=== PATIENT | female | born 1995 | race Caucasian/White ===

== ENCOUNTER → 2022-05-06 13:50 | Outpatient (CLI) | payer BC, SELFPAY ==
--- NOTE | ~2022-05-06 | US_ITS ---
EXAMINATION: US OB <=14 wk fetus w TV DATE: 05/06/2022 14:19 INDICATION: Supervision of normal . TECHNIQUE: Real-time transabdominal and transvaginal obstetric ultrasound. FINDINGS: No prior studies for comparison. The uterus measures 8.7 x 4.4 x 5.9 cm. There is an intrauterine gestational sac. Mean sac diameter c orresponds to a 5 week 2 day gestation (CAROL 01/04/2023 There is a small subchorionic hemorrhage measu ring 4 x 3 x 3 mm crown-rump length is not visualized. Yolk sac is present. Right ovary measures 3.7 x 2.4 x 2.2 cm. Left ovary measures 3.2 x 1.9 x 2 years. No significant abnormality of the ovaries. IMPRESSION: 1. Intrauterine gestational sac containing a yolk sac. No identifiable pole, likely due to graham y gestational age. Mean sac diameter corresponds to a 5 week 2 day gestation. Quantitative beta-hCG l evels and ultrasound as clinically indicated. 2: Small subchorionic hemorrhage measuring 4 x 3 x 3 mm. Reviewed, dictated and finalized at location A. IMPRESSION: 1. Intrauterine gestational sac containing a yolk sac. No identifiable po le, likely due to early gestational age. Mean sac diameter corresponds to a 5 w [place] 2 day gestation. Quantitative beta-hCG levels and ultrasound as clinically indicated. 2: Small subchorionic hemorrhage measuring 4 x 3 x 3 mm.
== END ==
PROVIDERS: PCP Student in an Organized Health Care Education/Training Program; Visit Provider Student in an Organized Health Care Education/Training Program
DX: O46.91 Antepartum hemorrhage, unspecified, first trimester (principal); Z3A.01 Less than 8 weeks gestation of pregnancy
CPT/HCPCS: 76801; 76817

== ENCOUNTER 2022-05-27 16:04 | Outpatient (CLI) | payer BC, SELFPAY ==
--- NOTE | ~2022-05-27 | US_ITS ---
EXAMINATION: US OB <=14 wk fetus w TV DATE: 05/27/2022 17:05 INDICATION: Complicated . Spotting. TECHNIQUE: Real-time transabdominal and transvaginal obstetric ultrasound. FINDINGS: Comparison to 05/06/2022 The uterus measures 10.1 x 6.6 x 7.1 cm. There is an intrauterine gestational sac, with pole id entified. [place]-rump length measures 1.97 cm. heart rate is 173 bpm. The ovaries are within nor mal limits. No evidence for subchorionic hemorrhage. IMPRESSION: 1. SL IUP with an EGA of 8 weeks, 2 days (EDC by current ultrasound of 01/04/2023). Reviewed, dictated and finalized at location B. IMPRESSION: 1. SL IUP with an EGA of 8 weeks, 2 days (EDC by current ultrasound of 01/05/20 23).
== END 2022-05-27 16:05 | disposition home or self-care (01) ==
LOC: ANHIMG 16:06
PROVIDERS: PCP Registered Nurse; Visit Provider Student in an Organized Health Care Education/Training Program
DX: O26.851 Spotting complicating pregnancy, first trimester (principal); Z3A.08 8 weeks gestation of pregnancy
CPT/HCPCS: 76801; 76817

== ENCOUNTER 2022-10-18 07:30 | Outpatient (CLI) | payer BC, SELFPAY ==
[2022-10-18 09:05] LABS: Basophils Percent Auto 0.5 % (0.2-1.2); Eosinophils Absolute Auto 0.1 K/mm3 (0-0.3); Eosinophils Percent Auto 1.8 % (0-4.4); Hematocrit 37.7 % (37.0-47.0); Immature Granulocyte Absolute 0.04 K/mm3 (0.00-0.031); Immature Granulocyte Percent A 0.5 % (0-0.5); Lymphocytes Absolute Auto 1.21 K/mm3 (0.9-3.2); Lymphocytes Percent Auto 15.3 % (18.3-44.2); Mean Corpuscular HGB Conc 34.5 g/dl (32-36); Mean Corpuscular Hemoglobin 30.9 pg (26-34); Mean Corpuscular Volume 89.5 fl (80-100); Mean Platelet Volume 9.6 fl (7.4-10.4); Monocytes Absolute Auto 0.5 K/mm3 (0.1-0.6); Monocytes Percent Auto 5.7 % (2.6-8.5); Neutrophils Percent Auto 76.2 % (45.5-73.1); Platelet Count Result 180 k/mm3 (150-375); Red Blood Count 4.21 M/mm3 (4.2-5.4); Red Cell Distribution Width 12.4 % (11.5-14.5); White Blood Count 7.9 K/mm3 (4.5-10.0)
[2022-10-18 09:25] LABS: Glucose 1 Hour PP 50gm Dose 133 mg/dL
[2022-10-18] MEDS: RHO(D) IMMUNE GLOBULIN 300 MCG/2 ML SYRINGE IM (12:54)
== END 2022-10-18 07:31 | disposition home or self-care (01) ==
PROVIDERS: PCP Registered Nurse; Visit Provider Obstetrics & Gynecology
DX: Z34.90 Encounter for supervision of normal pregnancy, unspecified, unspecified trimester (principal); Z3A.00 Weeks of gestation of pregnancy not specified
CPT/HCPCS: 36415; 82947; 85025; 85461; 86850; 86900; 86901; 90384; 96372; J2790

== ENCOUNTER 2022-11-04 06:59 | Outpatient (CLI) | payer BC, SELFPAY ==
[2022-11-04 07:30] LABS: Glucose Fasting Gestational 88 mg/dL (>/=95)
[2022-11-04 09:00] LABS: Glucose 1 Hour Gest 135 mg/dL (>/=180)
[2022-11-04 10:13] LABS: Glucose 2 Hour Gest 111 mg/dL (>/= 155)
[2022-11-04 11:27] LABS: Glucose 3 Hour Gest 82 mg/dL (>/=140)
== END 2022-11-04 07:00 | disposition home or self-care (01) ==
LOC: ANHLAB 07:00
PROVIDERS: PCP Registered Nurse; Visit Provider Obstetrics & Gynecology
DX: O99.810 Abnormal glucose complicating pregnancy (principal); Z3A.00 Weeks of gestation of pregnancy not specified
CPT/HCPCS: 36415; 82951; 82952

== ENCOUNTER 2022-11-15 08:30 | Outpatient (CLI) | payer BC, SELFPAY ==
[2022-11-15 09:48] LABS: HIV 1/2 Ab P24 Ag Result Negative (Negative)
[2022-11-15 17:15] LABS: Rapid Plasma Reagin Non-Reactive (NonReactive)
== END 2022-11-15 08:31 | disposition home or self-care (01) ==
PROVIDERS: PCP Registered Nurse; Visit Provider Obstetrics & Gynecology
DX: Z34.90 Encounter for supervision of normal pregnancy, unspecified, unspecified trimester (principal)
CPT/HCPCS: 36415; 86592; 86703; G0432

== ENCOUNTER 2022-12-02 08:15 | Outpatient (CLI) | payer BC, SELFPAY ==
[2022-12-02 08:34] LABS: Basophils Percent Auto 0.4 % (0.2-1.2); Eosinophils Absolute Auto 0.1 K/mm3 (0-0.3); Eosinophils Percent Auto 1.4 % (0-4.4); Immature Granulocyte Absolute 0.07 K/mm3 (0.00-0.031); Immature Granulocyte Percent A 0.8 % (0-0.5); Lymphocytes Absolute Auto 1.13 K/mm3 (0.9-3.2); Lymphocytes Percent Auto 12.6 % (18.3-44.2); Mean Corpuscular HGB Conc 33.3 g/dl (32-36); Mean Corpuscular Volume 90.1 fl (80-100); Mean Platelet Volume 10.8 fl (7.4-10.4); Monocytes Absolute Auto 0.6 K/mm3 (0.1-0.6); Monocytes Percent Auto 6.1 % (2.6-8.5); Neutrophils Absolute Auto 7.1 K/mm3 (1.3-6.7); Neutrophils Percent Auto 78.7 % (45.5-73.1); Platelet Count Result 159 k/mm3 (150-375); Red Blood Count 4.33 M/mm3 (4.2-5.4); Red Cell Distribution Width 12.6 % (11.5-14.5)
== END 2022-12-02 08:16 | disposition home or self-care (01) ==
PROVIDERS: PCP Registered Nurse; Visit Provider Obstetrics & Gynecology
DX: Z34.90 Encounter for supervision of normal pregnancy, unspecified, unspecified trimester (principal); Z3A.00 Weeks of gestation of pregnancy not specified
CPT/HCPCS: 36415; 85025

== ENCOUNTER 2022-12-13 10:14 | Outpatient (CLI) | payer BC, SELFPAY ==
[2022-12-13 10:49] LABS: Basophils Percent Auto 0.4 % (0.2-1.2); Eosinophils Absolute Auto 0.2 K/mm3 (0-0.3); Eosinophils Percent Auto 1.5 % (0-4.4); Hematocrit 39.6 % (37.0-47.0); Hemoglobin 13.3 g/dL (12.0-15.0); Immature Granulocyte Absolute 0.04 K/mm3 (0.00-0.031); Immature Granulocyte Percent A 0.4 % (0-0.5); Lymphocytes Absolute Auto 1.24 K/mm3 (0.9-3.2); Lymphocytes Percent Auto 12.4 % (18.3-44.2); Mean Corpuscular HGB Conc 33.6 g/dl (32-36); Mean Corpuscular Hemoglobin 29.9 pg (26-34); Mean Platelet Volume 10.7 fl (7.4-10.4); Monocytes Absolute Auto 0.7 K/mm3 (0.1-0.6); Neutrophils Absolute Auto 7.8 K/mm3 (1.3-6.7); Neutrophils Percent Auto 78.3 % (45.5-73.1); Platelet Count Result 175 k/mm3 (150-375); Red Blood Count 4.45 M/mm3 (4.2-5.4); Red Cell Distribution Width 12.5 % (11.5-14.5)
== END 2022-12-13 10:15 | disposition home or self-care (01) ==
LOC: ANHLAB 10:15
PROVIDERS: PCP Registered Nurse; Visit Provider Obstetrics & Gynecology
DX: Z34.03 Encounter for supervision of normal first pregnancy, third trimester (principal)
CPT/HCPCS: 36415; 85025

== ENCOUNTER 2022-12-15 12:40 | Inpatient (IN) | payer BC, SELFPAY ==
[2022-12-15] VITALS (97 sets, daily range): BP systolic 108–139; BP diastolic 55–97; PULSE 56–99; RESP 18; TEMP 37.1–37.6; O2SAT 94–100; BMI 23.8
[2022-12-15] MEDS: ACETAMINOPHEN 500 MG TABLET 1000 MG PO (15:04)
--- NOTE | 2022-12-15 15:08 | LDADM ---
This patient, Cornelius Gonzáles, was admitted to Labor/Delivery/Recovery 106 on 12/15/22 at 12:40. Plans for labor, pain management and were discussed with patient. Patient/family oriented to hospital policies and general routines including ID bracelet, bed and alarms, visiting hours, pain management, procedures, bathroom and other care routines, personal items, smoking policy, room service/diet and guest tray routines, infant security routines, and visiting hours. Patient/Family are encouraged to report perceived risks to care and to ask questions if they do not understand what they are told or what they should do. See OBIX for further documentation.
[2022-12-15] MEDS: LACTATED RINGERS 1,000 ML 125 ML IV CONT ×2 (15:30→18:18)
[2022-12-15 15:35] LABS: Basophils Percent Auto 0.3 % (0.2-1.2); Eosinophils Absolute Auto 0.1 K/mm3 (0-0.3); Eosinophils Percent Auto 1.2 % (0-4.4); Hematocrit 37.1 % (37.0-47.0); Hemoglobin 12.8 g/dL (12.0-15.0); Immature Granulocyte Absolute 0.03 K/mm3 (0.00-0.031); Immature Granulocyte Percent A 0.3 % (0-0.5); Lymphocytes Absolute Auto 1.36 K/mm3 (0.9-3.2); Lymphocytes Percent Auto 11.9 % (18.3-44.2); Mean Corpuscular HGB Conc 34.5 g/dl (32-36); Mean Corpuscular Hemoglobin 30.4 pg (26-34); Mean Corpuscular Volume 88.1 fl (80-100); Monocytes Percent Auto 8.4 % (2.6-8.5); Neutrophils Absolute Auto 8.9 K/mm3 (1.3-6.7); Neutrophils Percent Auto 77.9 % (45.5-73.1); Platelet Count Result 182 k/mm3 (150-375); Red Blood Count 4.21 M/mm3 (4.2-5.4); Red Cell Distribution Width 12.8 % (11.5-14.5); White Blood Count 11.4 K/mm3 (4.5-10.0)
[2022-12-15] MEDS: fentaNYL CITRATE INJ (*CRX) 100 MCG/2 ML VIAL 50 MCG IV PUSH (16:50)
[2022-12-15] MEDS: AMPICILLIN 2 GM/NS 100 ML 2 GM/100 ML BAG IVPB (16:53)
--- NOTE | 2022-12-15 17:53 | WPDANESEPP ---
Anes - Eval Pre Procedure Procedure: labor epidural Date/Time: 12/15/22 17:53 Surgeon: elsi Preop Diagnosis: pain during labor Pre Op Diagnosis: contractions Patient Data Age: 27 Gender: F Height: 1.75 m Weight: 73 kg Last Vital Signs Temp 37.4 C 12/15/22 16:44 Pulse 66 12/15/22 16:57 BP 137/84 12/15/22 16:57 O2 Del Method Room Air 12/15/22 15:07 Allergies Allergy/AdvReac Type Severity Reaction Status Date / Time doxycycline Allergy Unknown Rash Verified 12/15/22 15:17 Home Medications Medication Instructions Recorded Confirmed Type prenat.vits,lj,zcg-rekt-gypwl 1 tablet PO DAILY 05/03/22 12/13/22 History cholecalciferol (vitamin D3) 50 50 mcg PO DAILY 12/12/22 12/13/22 History mcg (2,000 unit) capsule Laboratory Tests 12/15/22 15:02 WBC 11.4 H K/mm3 (4.5-10.0) RBC 4.21 M/mm3 (4.2-5.4) Hgb 12.8 g/dL (12.0-15.0) Hct 37.1 % (37.0-47.0) MCV 88.1 fl (80-100) MCH 30.4 pg (26-34) MCHC 34.5 g/dl (32-36) RDW 12.8 % (11.5-14.5) Plt Count 182 k/mm3 (150-375) MPV 11.0 H fl (7.4-10.4) Immature Gran % (Auto) 0.3 % (0-0.5) Neut % (Auto) 77.9 H % (45.5-73.1) Lymph % (Auto) 11.9 L % (18.3-44.2) [place] % (Auto) 8.4 % (2.6-8.5) Eos % (Auto) 1.2 % (0-4.4) Baso % (Auto) 0.3 % (0.2-1.2) Lymph # (Auto) 1.36 K/mm3 (0.9-3.2) [place] # (Auto) 1.0 H K/mm3 (0.1-0.6) Eos # (Auto) 0.1 K/mm3 (0-0.3) Baso # (Auto) 0.0 K/mm3 (0.0-0.1) Abs Immat Gran (auto) 0.03 K/mm3 (0.00-0.031) Absolute Neuts (auto) 8.9 H K/mm3 (1.3-6.7) Absolute Nucleated RBC 0.0 K/mm3 (0.0-0.012) Nucleated RBC % 0.0 % (0.0-0.2) RPR Pending Patient hx anesthesia problems: none Family hx anesthesia problems: none Results Review: All pre-operative results and documents have been reviewed as part of the pre-operative evaluation. [facility] Past Medical History Medical History (Updated 12/12/22 @ 08:21 by Janice Walters CMA) Hx of migraines Hypertension Surgical History Surgical History History of colposcopy [place] teeth removed Family History Family History Father Hypertension Sibling Hypertension Grandparent Carcinoma of colon Family history of lung cancer Social History Social History (Updated 12/12/22 @ 08:22 by Janice Walters CMA) Smoking status: Never smoker Second hand tobacco smoke exposure: No Alcohol intake: former Alcohol use details: Not since Substance use: never Lack of Transportation: No Lack of Food: Never True Current Housing: I Have Housing Concerned About Future Housing: No Difficulty Paying Gas/Electric Bills: No Difficulty Paying for Meds: No Currently Unemployed: No Education: Master's Degree or Higher Difficulty w/ Childcare or Family Care: No Living arrangements: with family Spiritual care concerns: No Exam Day of Procedure 12/15/22 17:53
[2022-12-15] MEDS: AMPICILLIN 1 GM/NS 50 ML 1 GM/50 ML BAG IVPB (21:24)
[2022-12-16] VITALS (108 sets, daily range): BP systolic 101–148; BP diastolic 53–89; PULSE 52–137; RESP 16; TEMP 36.2–38.4; O2SAT 84–100
[2022-12-16] MEDS: AMPICILLIN 1 GM/NS 50 ML 1 GM/50 ML BAG IVPB (01:17)
[2022-12-16] MEDS: ACETAMINOPHEN 500 MG TABLET 1000 MG PO (01:36)
--- NOTE | 2022-12-16 04:46 | PM.IMHP ---
H&P: HPI History of Present Illness Date/Time: 12/16/22 04:46 Chief Complaint: Intrauterine at term Narrative: 27 yo G1 at 37w1d who present with contraction. Pt had been having regular contractions all day. She denies any vaginal bleeding or leakage of fluid. is complicated by GBS bacteruria. Review of Systems Cardiovascular: Cardiovascular: Denies chest pain, Denies leg edema, Denies palpitations, Denies dyspnea and Denies dyspnea on exertion Respiratory: Respiratory: Denies cough, Denies dyspnea and Denies dyspnea on exertion Gastrointestinal: Gastrointestinal: Denies abdominal pain, Denies constipation, Denies diarrhea, Denies nausea and Denies vomiting Genitourinary: Genitourinary: Denies hematuria, Denies urinary frequency, Denies dysuria, Denies pelvic pain, Denies urinary incontinence and Denies vaginal discharge Neurologic: Reports system reviewed and no additional complaints, except as documented Psychiatric: Psychiatric: Reports no additional psychiatric complaints Endocrine: Endocrine: Denies palpitations PMFSH Past Medical History Medical History (Updated 12/16/22 @ 04:48 by Jose Godoy MD) Hx of migraines Hypertension Surgical History Surgical History History of colposcopy [place] teeth removed Family History Family History Father Hypertension Sibling Hypertension Grandparent Carcinoma of colon Family history of lung cancer Social History Social History (Updated 12/12/22 @ 08:22 by Janice Walters CMA) Smoking status: Never smoker Second hand tobacco smoke exposure: No Alcohol intake: former Alcohol use details: Not since Substance use: never Lack of Transportation: No Lack of Food: Never True Current Housing: I Have Housing Concerned About Future Housing: No Difficulty Paying Gas/Electric Bills: No Difficulty Paying for Meds: No Currently Unemployed: No Education: Master's Degree or Higher Difficulty w/ Childcare or Family Care: No Living arrangements: with family Spiritual care concerns: No Meds Home Medications and Allergies Home Medications Medication Instructions Recorded Confirmed Type prenat.vits,lj,agx-btpa-eznqv 1 tablet PO DAILY 05/03/22 12/13/22 History cholecalciferol (vitamin D3) 50 50 mcg PO DAILY 12/12/22 12/13/22 History mcg (2,000 unit) capsule Allergies Allergy/AdvReac Type Severity Reaction Status Date / Time doxycycline Allergy Unknown Rash Verified 12/15/22 15:17 Vital Signs Vital Signs - 24 hr 12/15/22 15:04 12/15/22 15:07 12/15/22 16:45 Temperature 99.6 F Pulse Rate 59 L Respiratory Rate Blood Pressure 139/83 Pulse Oximetry Oxygen Delivery Room Air 12/15/22 16:44 12/15/22 16:57 12/15/22 17:59 Temperature 99.3 F Pulse Rate 66 70 Respiratory Rate Blood Pressure 137/84 136/81 Pulse Oximetry 100 Oxygen Delivery 12/15/22 18:02 12/15/22 18:03 12/15/22 18:04 Temperature Pulse Rate 72 75 Respiratory Rate Blood Pressure 138/79 132/84 Pulse Oximetry 100 Oxygen Delivery 12/15/22 18:06 12/15/22 18:09 12/15/22 18:12 Temperature Pulse Rate 82 73 79 Respiratory Rate Blood Pressure 130/84 117/78 137/73 Pulse Oximetry 100 Oxygen Delivery 12/15/22 18:14 12/15/22 18:15 12/15/22 18:18 Temperature Pulse Rate 80 68 Respiratory Rate Blood Pressure 126/64 128/65 Pulse Oximetry 100 Oxygen Delivery 12/15/22 18:19 12/15/22 18:21 12/15/22 18:24 Temperature Pulse Rate 82 75 Respiratory Rate Blood Pressure 136/70 123/73 Pulse Oximetry 99 99 Oxygen Delivery 12/15/22 18:27 12/15/22 18:29 12/15/22 18:30 Temperature 98.7 F Pulse Rate 75 82 Respiratory Rate 18 Blood Pressure 132/80 120/97 H Pulse Oximetry 98 Oxygen Delivery 12/15/22 18:33
--- NOTE | 2022-12-16 04:49 | PM.OBPRVD ---
OB - Delivery Note Procedure Delivery date: 12/16/22 Procedure: Patient pushed for a spontaneous vaginal delivery. A nuchal x 1 was noted and was reduced. The fetus was delivered atraumatically and placed on the maternal abdomen. The cord was clamped and cut after 1 minute of life. The cord was double clamped and cut and a segment of cord was collected for cord gases. Cord blood was collected for blood type and Coomb's testing. The placenta delivered spontaneously and was noted to be intact. The perineum was inspected and there was a left vaginal laceration. The laceration was repaired with 3-0 vicryl in a running fashion. The uterus was firm and good hemostasis was noted. The patient and fetus were stable in the delivery room. Induction method: None Delivery monitor: External FHT Route of delivery: Episiotomy description: None Laceration Description: Vaginal Delivery repair: vicryl Specimen: No Quantitative Blood Loss (ml): 200 Anesthesia type: Epidural Disposition: Floor () Complications: No immediate complications Baby Date of : 12/16/22 Time of : 04:32 Weeks of gestation at delivery: 37 gender: Male presentation: vertex position: Right Occiput Anterior Placenta delivery description: Spontaneous Cord Vessel Description: 3 Vessels and Nuchal Cord score one minute: 8 score five minutes: 9 AMG Delivery Billing Delivery Delivery: Delivery Charge
[2022-12-16] MEDS: OXYTOCIN 30 UNITS/NS 500 ML 30 UNITS/500 ML BAG 125 UNITS IV CONT (05:10)
[2022-12-16] MEDS: WITCH HAZEL 40 PADS 1 PAD TOPICAL (07:25)
[2022-12-16] MEDS: BENZOCAINE 20% AER SPR (*SP) 56 GM CAN 1 SPRAY TOPICAL (07:25)
[2022-12-16 08:43] LABS: Rapid Plasma Reagin Non-Reactive (NonReactive)
[2022-12-16] MEDS: MULTIVIT/MIN/PREN/FOL AC/IRON TABLET 1 TAB PO (08:55)
[2022-12-16] MEDS: DOCUSATE SODIUM 100 MG CAPSULE PO (08:56)
--- NOTE | 2022-12-16 09:29 | OBPPTRN ---
0735-Patient transferred to post room #284 via wheelchair. Support person present. Oriented to unit, room, information board, rooming in, admission packet and security measures. Patient verbalizes understanding.
--- NOTE | 2022-12-16 10:14 | PC.NURSE ---
[id number] Introductions were made, then consulted with patient to assess needs related to . Mother led the conversation with her?undecided plans and the?experience so far. Resources provided for inpatient and outpatient services with the feeding sheet, mom/baby guide and name written on the white board. Mother voiced understanding of information and states she wants to feed her the colostrum, however; is unsure if she wants to pump and doesn't want to breastfeed. Reviewed protecting her milk supply and offered assistance if she decides to breastfeed or pump. Maternal mother shares her thoughts and experience leaning away from supporting a milk supply. Reported to the primary RN.
[2022-12-17 05:26] LABS: Hematocrit 36.2 % (37.0-47.0); Hemoglobin 12.3 g/dL (12.0-15.0)
[2022-12-17 07:45] VITALS: BP 127/85; PULSE 57; RESP 16; TEMP 36.9; O2SAT 100
--- NOTE | 2022-12-17 08:51 | WPDANLDPN2 ---
Anes-Prog Note L&D Date/Time: 12/17/22 08:51 Neuro status: Neuro function grossly intact. Vital Signs: Last Vital Signs Temp 36.7 C 12/16/22 19:15 Pulse 79 12/16/22 19:15 Resp 16 12/16/22 19:15 BP 122/85 12/16/22 19:15 Pulse Ox 98 12/16/22 12:16 O2 Del Method Room Air 12/16/22 08:00 Pain score (VAS): 0 I/O: Intake & Output 12/16/22 12/17/22 12/17/22 23:59 07:59 15:59 Intake Total 500 Balance 500 Patient feedback: Patient satisfied with anesthetic care.
[2022-12-17] MEDS: RHO(D) IMMUNE GLOBULIN 300 MCG/2 ML SYRINGE IM (12:37)
--- NOTE | 2022-12-17 16:30 | P.PNOB_ITS ---
OB - PN: Subj Subjective Date/time seen: 12/17/22 16:30 Patient comments: pain well controlled, tolerating diet and other (Decreasing lochia.) baby status: doing well and nursing well [place] feeding status: exclusively breast feeding OB - PN: Obj Data Labs 12/17/22 05:20 Labs: Laboratory Results - last 24 hr 12/17/22 05:20 Hgb 12.3 Hct 36.2 L Blood Type A Negative Antibody Screen TNP Screen Negative Baby's Blood Type A pos Baby's KATHYA Positive Doses of RhIg Required 1 OB - PN A/P Plan day: 1 Plan: routine care Comments: Patient doing well. Time Spent With Patient Time: Total time spent is greater than 50% in coordination of care (as documented) at patient's floor/unit and/or counseling patient: Exam Psych: Affect: normal affect Other: Abd: fundus firm below umbilicus, nontender Perineum: healing Ext: nontender
--- NOTE | 2022-12-17 19:02 | PC.NURSE ---
Patient viewed the discharge video Mother & Baby Care, The First Two Weeks . Patient was given the opportunity and encouraged to ask questions. Patient verbalized understanding of information shared and has been given the mother/baby guide for home reference.
[2022-12-17 19:35] VITALS: BP 151/91; PULSE 66; RESP 16; TEMP 36.2
[2022-12-18 08:00] VITALS: BP 135/82; PULSE 64; RESP 18; TEMP 37; O2SAT 100
--- NOTE | 2022-12-18 14:43 | WPDANLDPN2 ---
Anes-Prog Note L&D Date/Time: 12/18/22 14:43 Comfortable throughout: labor and delivery Neuraxial method: epidural Epidural/Spinal procedure site: clean & non-tender Neuro status: Neuro function grossly intact. Cardiovascular status: normal Respiratory status: normal Airway patency: baseline Mental status: baseline Post-Op hydration status: normal Vital Signs: Last Vital Signs Temp 98.6 F 12/18/22 08:00 Pulse 64 12/18/22 08:00 Resp 18 12/18/22 08:00 BP 135/82 12/18/22 08:00 Pulse Ox 100 12/18/22 08:00 O2 Del Method Room Air 12/16/22 08:00 Pain score (VAS): 0/10 I/O: Intake & Output 12/17/22 12/18/22 12/18/22 23:59 07:59 15:59 Intake Total 500 500 Balance 500 500 Post-procedural complaints: none Patient feedback: Patient satisfied with anesthetic care.
[2022-12-19 08:33] VITALS: BP 131/72; PULSE 76; RESP 18; TEMP 36.8; O2SAT 99
--- NOTE | 2022-12-23 08:01 | PM.OBDSVD ---
DS: Admitting Diagnosis Discharge Date 12/18/22 Admitting Diagnosis intrauterine at term OB - DS: Summary OB Procedures : None OB Procedures Intrapartum: Spontaneous Vag Delivery OB Procedures: : None Status at Discharge Functional status at discharge: independent ambulation Overall status at discharge: patient is back to baseline Time Spent with Patient Time attestation: Total time spent providing and/or coordinating discharge services: Time spent: Less than 30 minutes Exam Const: General: comfortable and no acute distress Resp: Effort & Inspection: normal respiratory effort Auscultation: clear to auscultation bilaterally Cardio: Rate: regular rate GI: GI Palp: Yes Soft to palpation Auscultation: normal bowel sounds Other: Fundus firm below umbilicus Psych: Appearance: grossly normal Mental Status: mental status grossly normal Affect: normal affect DS: Data Data Completed and Pending Completed studies during hospitalization: Pending at discharge 12/16/22 04:35 Surgical [PTH] Routine Discharge Plan Discharge Attending physician on discharge: Cm Aguero Consulting providers: Lori Zavaleta; Delaney Louis; Adonay Baumann Discharging Clinician: Cm gAuero Anticipated Discharge Date/Time: 12/18/22 09:07 Patient Disposition: Home, Self-Care Activity: may shower and pelvic rest Diet: regular Discharge Instructions: Education: Mom and Baby Guide Given to: Mother Follow-Up: Call your delivering provider's office for an appointment to be seen in: 4 Weeks [facility]. Appointment Date/Time: December 19, 2022 at 8:00 am What to expect at your follow-up visit: Blood Pressure Check Physical Assessment Call [phone] if you are unable to keep your appointment time. BREAST CARE: * Wear a snug supportive bra. * For engorgement discomfort: Bottle Feeding: * May apply ice packs EPISIOTOMY/PERINEAL CARE: * Until bleeding stops, use your maxime bottle after urinating * Change your pad frequently throughout the day * You may take sitz baths several times a day (fill your bathtub with warm water and soak for 20 minutes.) Do NOT bathe in the water * No tub baths until seen by your physician - You may shower ACTIVITY: * Rest as much as possible. * Do not exercise or lift anything heavier than your baby (such as laundry or other children.) * Avoid stairs or driving as much as possible. * Do not put anything into the vagina. No douching, tampons, or sexual activity until seen by physician. NOTIFY PHYSICIAN IF YOU HAVE ANY QUESTIONS OR IF ANY OF THE FOLLOWING SYMPTOMS OCCUR: * If your vaginal area becomes red, swollen, or more painful than what you have experienced in the hospital. * If your vaginal bleeding becomes foul smelling. * If your vaginal bleeding becomes more heavy than a period or if your bleeding changes from pink to bright red. However, you may pass an occasional walnut-sized clot once or twice for the first week . * If you experience a sharp, shooting pain in your calves. * If you discover a hard, reddened area on your breast or if you experience flu-like symptoms. DIET: * Eat regular, well-balanced meals. * Drink plenty of fluids daily. Pelvic rest for 4-6 weeks. May take over the counter Ibuprofen or Tylenol for pain. Call if saturating more than a pad an hour, leg redness, pain and swelling, temperature>100.4. No strenuous activity. Stand Alone Forms: General Discharge Information Follow-up/Referrals: Cm Aguero MD [Physician] - 4 Weeks Discharge Medications: Continued prenat.vits,lj,blt-cenh-csake Tablet 1 tablet PO DAILY cholecalciferol (vitamin D3) 50 mcg (2,000 unit) capsule 50 mcg PO DAILY Date of admission: 12/15/22 12:40 Primary Care Provider: S
== END 2022-12-18 16:50 | disposition home or self-care (01) | DRG 807 ==
LOC: ANHLDR 14:57 → ANHOB2 12-16 07:38
PROVIDERS: Admitting Provider Student in an Organized Health Care Education/Training Program; PCP Registered Nurse; Visit Provider Obstetrics & Gynecology
DX: O99.824 Streptococcus B carrier state complicating childbirth (principal); Z37.0 Single live birth; O70.0 First degree perineal laceration during delivery; O69.81X0 Labor and delivery complicated by cord around neck, without compression, not applicable or unspecified; Z3A.37 37 weeks gestation of pregnancy
CPT/HCPCS: 36415; 85014; 85018; 85025; 85461; 86592; 86850; 86880; 86900; 86901; 87426; 88307; 90384; 93005; A9270; C9803; J0290; J2590; J2790; J2795; J3010; J7120

== ENCOUNTER 2024-04-23 08:26 | Outpatient (CLI) | payer BC, SELFPAY | END 2024-04-23 08:27 | disposition home or self-care (01) | LOC: ANHLAB 08:27 | PROVIDERS: PCP Registered Nurse; Visit Provider Nurse Practitioner Obstetrics & Gynecology | DX: N92.6 Irregular menstruation, unspecified (principal) | CPT/HCPCS: 36415; 84443 ==

== ENCOUNTER 2024-06-30 13:47 | Outpatient (CLI) | payer BC, SELFPAY ==
--- NOTE | ~2024-06-30 | US_ITS ---
EXAMINATION: US OB <=14 wk fetus w TV DATE: 06/30/2024 14:11 INDICATION: Amenorrhea. Establish dating of during first trimester. TECHNIQUE: Real-time pelvic ultrasound utilizing both a transvaginal and transabdominal probe was pe rformed. The interpreting radiologist was not present for the study. COMPARISON: 05/27/2022 FINDINGS: The uterus measures 9.7 x 6.1 x 5.6 cm. There is an intrauterine gestational sac. A yolk sac and fet al pole are identified. The crown rump length measures 6 mm, which correlates with an estimated gesta tional age of 6 weeks and 3 days. heart motion is identified measuring 130 beats per minute (bp m) by M-mode Doppler. The right ovary is not visualized The left ovary measures 3.2 x 1.7 x 2.0 cm. Vascular flow identifie d in the left ovary on color Doppler. There is no free fluid in the pelvis. IMPRESSION: 1. Single living fetus with heart rate of 130 bpm. 2. Gestational age by ultrasound of 6 weeks 3 day(s) +/- 4 day(s) with ultrasound estimated date of delivery (CAROL) of 02/20/2025. Reviewed, dictated and finalized at location A. T ASSOCIATE IMPRESSION: 1. Single living fetus with heart rate of 130 bpm. 2. Gestational age by ultrasound of 6 weeks 3 day(s) +/- 4 day(s) with ultraso und estimated date of delivery (CAROL) of 02/20/2025.
== END 2024-06-30 13:48 | disposition home or self-care (01) ==
PROVIDERS: PCP Obstetrics & Gynecology; Visit Provider Nurse Practitioner Obstetrics & Gynecology
DX: N91.2 Amenorrhea, unspecified (principal)
CPT/HCPCS: 76801; 76817

== ENCOUNTER 2024-08-07 09:54 | Outpatient (CLI) | payer BC, SELFPAY ==
[2024-08-07 11:22] LABS: Basophils Percent Auto 0.4 % (0.2-1.2); Eosinophils Absolute Auto 0.2 K/mm3 (0-0.3); Hematocrit 41.3 % (37.0-47.0); Hemoglobin 14.1 g/dL (12.0-15.0); Immature Granulocyte Absolute 0.03 K/mm3 (0.00-0.031); Immature Granulocyte Percent A 0.3 % (0-0.5); Lymphocytes Absolute Auto 1.46 K/mm3 (0.9-3.2); Lymphocytes Percent Auto 15.3 % (18.3-44.2); Mean Corpuscular HGB Conc 34.1 g/dl (32-36); Mean Corpuscular Hemoglobin 30.1 pg (26-34); Mean Corpuscular Volume 88.2 fl (80-100); Mean Platelet Volume 9.7 fl (7.4-10.4); Monocytes Absolute Auto 0.5 K/mm3 (0.1-0.6); Monocytes Percent Auto 5.7 % (2.6-8.5); Neutrophils Absolute Auto 7.3 K/mm3 (1.3-6.7); Neutrophils Percent Auto 76.3 % (45.5-73.1); Platelet Count Result 264 k/mm3 (150-375); Red Blood Count 4.68 M/mm3 (4.2-5.4); Red Cell Distribution Width 12.1 % (11.5-14.5); White Blood Count 9.6 K/mm3 (4.5-10.0)
[2024-08-07 12:08] LABS: Hepatitis B Surface Antigen Negative (Negative); Rubella IgG Antibody 15.8 IU/ML
[2024-08-07 12:11] LABS: HIV 1/2 Ab P24 Ag Result Negative (Negative)
[2024-08-07 12:25] LABS: Hepatitis C Virus Antibody Negative (Negative)
[2024-08-07 12:27] LABS: Add Urine Microscopic? YES; Appearance Urine Cloudy (Clear); Bacteria Urine 1+ /hpf; Bilirubin Urine Negative (Negative); Blood Urine Negative (Negative); Color Urine Yellow (Yellow); Glucose Urine UA Negative (Negative); Ketones Urine Negative (Negative); Leukocyte Esterase Ur Negative LEU/UL (Negative); Nitrate Urine Negative (Negative); Non Pathogenic Casts 0-2; Protein Urine Negative (Negative); RBC Urine 0-2 /hpf (0-2); Specific Grav Ur 1.017 (1.001-1.035); Squamous Epithelial Cell Urine Few /hpf (Few); Urobilinogen Urine 0.2 mg/dL (<2.0); WBC Urine 0-5 /hpf (0-3)
[2024-08-07 14:48] LABS: Rapid Plasma Reagin Non-Reactive (NonReactive)
[2024-08-11 17:49] LABS: Hematocrit 43.6 % (35.0-45.0); Hemoglobin 14.5 g/dL (11.7-15.5); MCH 30.6 pg (27.0-33.0); RDW 11.7 % (11.0-15.0); Red Blood Cell Count 4.74 Million/uL (3.80-5.10)
== END 2024-08-07 09:55 | disposition home or self-care (01) ==
LOC: ANHLAB 09:56
PROVIDERS: PCP Obstetrics & Gynecology; Visit Provider Obstetrics & Gynecology
DX: Z34.90 Encounter for supervision of normal pregnancy, unspecified, unspecified trimester (principal); Z3A.00 Weeks of gestation of pregnancy not specified
CPT/HCPCS: 36415; 81001; 83021; 85025; 86592; 86703; 86762; 86787; 86803; 86850; 86900; 86901; 87086; 87340; G0432

== ENCOUNTER 2024-11-05 06:59 | Outpatient (CLI) | payer BC, SELFPAY ==
--- OUTSIDE RECORDS SUMMARY | 2024-11-05 07:02 | XMS_ITS | Clinical Summary ---
Author Organization [facility] [employer] Address [address] [place] [address] Care Team Providers Care Book Mender Name Role Phone Khurram Dee MD Primary Care Provide r Source Comments [facility],non-owned Affiliates and Associated Physician Practices is amultiple site organization consisting of ambulatory clinics and hospital sitesin [place], [place], [place] and [place]. This disclosure is being madepursuant to the Care Everywhere program and may not contain all information available regarding this patient. Last updated 18.[facility] [employer] Allergies Active Allergy Reactions Criticality Noted Date Comments Doxycycline Swelling 05/21/2018 Medications * Be aware that medications may not be up to date on this document. Alwaysverify current medications with the patient. Medication Sig Dispensed Refills Start Date End Date Status levonorgestrel (MIRENA, 52 MG,) 20 MCG/24HR IUD 1 device by Intrauterine route as directed Active Active Problems No known active problems Social History Tobacco Use Types Packs/Day Years Used Date Smoking Tobacco: Never Smokeless Tobacco: Never Tobacco Cessation:Counseling Given: Yes Alcohol Use Standard Drinks/Week Comments Yes 0 (1 standard drink = 0.6 oz pur e alcohol) Sex and Gender Information Value Date Recorded Sex Assigned at Not on file Gender Identity Not on file Sexual Orientation Not on file Last Filed Vital Signs Vital Sign Reading Time Taken Comments Blood Pressure 120/70 04/13/2019 5:38 PM CDT Pulse 98 04/13/2019 5:38 PM CDT Temperature 36.7 C (98.1 F) 04/13/2019 5:38 PM CDT Respiratory Rate 16 04/13/2019 5:38 PM CDT Oxygen Saturation 98% 10/26/2018 4:27 PM CDT Inhaled Oxygen Concentration - - Weight 61.2 kg (135 lb) 04/13/2019 5:38 PM CDT Height 175.3 cm (5' 9 ) 04/13/2019 5:38 PM CDT Body Mass Index 19.94 04/13/2019 5:38 PM CDT Plan of Treatment Health Maintenance Due Date Last Done Comments PAP SMEAR 1994 HIV SCREENING 2009 HEPATITIS C SCREENING 10/27/2012 DTAP/TDAP/TD VACCINES (1 - Tdap) 2013 HEPATITIS B VACCINE (1 of 3 - 19+ 3-dose series) 2013 COVID-19 VACCINE ( - 2023-2 5 season) 2024 INFLUENZA VACCINE (#1) 2024 DEPRESSION SCREENING 08/04/2024 ZOSTER VACCINE (1 of 2) 2044 HIB VACCINE Aged Out No longer eligi ble based on patient's age to complete this topic HPV VACCINE Aged Out No longer eligi ble based on patient's age to complete this topic MENINGOCOCCAL (Group B) VACC INE SHARED DECISION-MAKING Aged Out No longer eligibl e based on patient's age to complete this topic MENINGOCOCCAL GROUPS A/C/Y/W VACCINE Aged Out No longer eligible b ased on patient's age to complete this topic PNEUMOCOCCAL VACCINE Aged Out No long er eligible based on patient's age to complete this topic Care Teams Book Mender Relationship Specialty Start Date End Date Khurram Dee MD PCP - General Family Medicine 05/28/17
--- OUTSIDE RECORDS SUMMARY | 2024-11-05 08:12 | XMS_ITS | Clinical Summary ---
Author Organization [facility] Address [address] [place] [phone] Phone Care Team Providers Care Technical Services Librarian Name Role Phone Unavailable Primary Care Provider Unavailabl e Allergies Active Allergy Reactions Criticality Noted Date Comments Doxycycline Swelling Low 05/21/2018 Medications levonorgestreL (MIRENA) 20 mcg/24 hours (5 yrs) 52 mg IUD 1 Device by Intrauterine route. Active SUMAtriptan (IMITREX) 50 mg tablet Take 50 mg by mouth. 0 Active Active Problems No known active problems Encounters Date Type Department Care Team Description 11/02/2024 External Device Data STL ABSTRACTION Provider, Abstract 10/09/2024 External Device Data STL ABSTRACTION Provider, Abstract 10/09/2024 External Device Data STL ABSTRACTION Provider, Abstract 10/06/2024 External Device Data STL ABSTRACTION Provider, Abstract 10/04/2024 2:44 PM SLATE CUTTER OPERATOR - 10/04/2024 11:59 PM SLATE CUTTER OPERATOR Hospital Encounter [facility] Maternal and [facility] [address] [place] [phone] Cm Garcia MD Discharge Disposition: Home or Self Care from Last 3 Months Social History Tobacco Use Types Packs/Day Years Used Date Smoking Tobacco: Never Assessed Comments Unknown Sex and Gender Information Value Date Recorded Sex Assigned at Not on file Legal Sex Female 11:12 AM SLATE CUTTER OPERATOR Gender Identity Not on file Sexual Orientation Not on file Last Filed Vital Signs Vital Sign Reading Time Taken Comments Blood Pressure 146/100 05/31/2020 6:22 PM CDT Pulse 82 05/31/2020 6:22 PM CDT Temperature 36.9 C (98.4 F) 05/31/2020 6:22 PM CDT Respiratory Rate 18 05/31/2020 6:22 PM CDT Oxygen Saturation 99% 05/31/2020 6:22 PM CDT Inhaled Oxygen Concentration - - Weight - - Height - - Body Mass Index - - Plan of Treatment Upcoming Encounters Date Type Department Care Team (Late st Contact Info) Description 12/20/2024 7:15 AM CDT Appointment [facility] and [facility] [address] [place] [address] Nhi Jolly MD [address] [facility] [address] [place] [address] Health Maintenance Due Date Last Done Comments DTAP/TDAP/TD VACCINES (1 - Tdap) 2013 HEPATITIS B VACCINES (1 of 3 - 19+ 3-dose series) 2013 CERVICAL CANCER SCREENING 11/02/2015 HPV/Cotest (21-29) 11/02/2015 PAP SMEAR 11/02/2015 PAP SMEAR 11/02/2015 INFLUENZA VACCINE (#1) 2024 Preventative Visit- Commercial 08/04/2024 HPV/Cotest (30-65) 2024 HPV VACCINES Aged Out No longer eligi ble based on patient's age to complete this topic Procedures Procedure Name Priority Date/Time Associated Diagnosis Comments US OB 14+ WKS SINGLE GEST Routine 10/04/2024 3:50 PM SLATE CUTTER OPERATOR screening for malformation using ultrasonics from Last 3 Months Results * US OB 14+ WKS SINGLE GEST (10/04/2024 3:50 PM SLATE CUTTER OPERATOR) Anatomical Region Laterality Modality Pelvis Ultrasound 10/04/2024 2:50 PM SLATE CUTTER OPERATOR Narrative 10/04/2024 3:50 PM SLATE CUTTER OPERATOR STL BASIC ----- Pat. Name: JULIA HERNANDEZ Study Date: 10/04/2024 2:50pm Pat. NO: [id number] Referring MD: CM GARCIA MD Site: [place] Internal Audit Director: Jud Hanson RDMS : 1995 Age: 28 ----- INDICATION ----- Anatomy Survey no genetics CODING ----- Diagnoses Z3A.20: Weeks of gestation Z36.3: Encounter for screening for malformations Procedures 56974: Ultrasound, uterus, real time with image documentation, and maternal evaluation, after first trimester (> or = 14 weeks 0 days), transabdominal approach; single or first gestation 99337: Ultrasound, uterus, real time with image documentation HISTORY ----- OB History 1. Para 0 MATERNAL ASSESSMENT ----- Physical Exam Weight 66 kg. BMI 21.56 kg/m METHOD ----- Transabdominal and transvaginal ultrasound examination ----- Berkowitz . Number of fetuses: 1 DATING ----- Cycle: regular cycle, regular cycle Method of dating: based on stated CAROL GA by prior assessment 20 w + 6 d CAROL by prior assessment: 02/15/2025 Ultrasound examination on: 10/04/2024 GA by U/S based upon: AC, BPD, EFW, Femur, HC GA by U/S 21 w + 2 d CAROL by U/S: 02/12/2025 Assigned: based on stated CAROL, selected on 10/04/2024 Assigned GA 20 w + 6 d Assigned CAROL: 02/15/2025 BIOMETRY ----- BPD 51.1 mm 21w 3d 74% Hadlock OFD 67.2 mm 22w 4d 94% Brinda HC 190.1 mm 21w 2d 60% Hadlock Cerebellum tr 22.0 mm 21w 3d 57% Irvin Nuchal fold 3.2 mm AC 167.2 mm 21w 5d 72% Hadlock Femur 34.3 mm 20w 6d 39% Hadlock Humerus 32.8 mm 21w 0d 54% Brinda HC / AC 1.14 33% Nicolaides Weight Calculation: EFW 415 g 21w 1d 69% Hadlock EFW (lb,oz) 0 lb 15 oz EFW by Hadlock ([id number]) Head / Face / Neck Biometry: Case Planner 8.6 mm CM 3.6 mm 8% Nicolaides Outer IOD 32.1 mm 20w 4d 19% Brinda Extremities / Bony Struc Biometry: FL / BPD 0.67 11% Hadlock FL / HC 0.18 13% Hadlock FL / AC 0.21 10% Hadlock GENERAL EVALUATION ----- Cardiac activity present. FHR 140 bpm. movements: visualized. Presentation: cephalic Placenta: Placental site: posterior Umbilical cord: Cord vessels: 3 vessel cord. Insertion site: placental insertion: normal Amniotic fluid: Amount of AF: normal amount. MVP 4.3 cm ANATOMY ----- The following structures appear normal: Head / Neck Cranium. Lateral ventricles. Choroid plexus. Midline falx. Cavum septi pellucidi. Cerebellum. Cisterna magna. Nuchal fold. Face Lips. Profile. Nose. Palate. Orbits. Heart / Thorax 4-chamber view. RVOT view. LVOT view. 3-vessel view. 4-fbbtkg-lzptvdh view. Situs. Aortic arch view. Ductal arch view. Superior vena cava. Inferior vena cava. High short axis view. Cardiac rhythm. Diaphragm. Abdomen Abdominal wall. Stomach. Kidneys. Bladder. Spine Cervical spine. Thoracic spine. Lumbar spine. Sacral spine. Extremities / Arms. Right hand. Left hand. Legs. Right foot. Left foot. Skeleton MATERNAL STRUCTURES ----- Cervix Visualized Approach - Transabdominal: Cervical length 37.2 mm Right Ovary Visualized Left Ovary Visualized GROWTH OVERVIEW ----- Exam date GA BPD (mm) HC (mm) AC (mm) FL (mm) HL (mm) EFW (g) 10/04/2024 20w 6d 51.1 74% 190.1 60% 167.2 72% 34.3 39% 32.8 54% 415 69% COMMENT ----- Patient's name and date of were confirmed by the manager business intelligence prior to the exam. Chelly Louis was present for the transvaginal ultrasound and served as a accounts collector. IMPRESSION ----- Berkowitz @ 20w 6d referred for anatomical survey. - The biometry is consistent with dates. - Amniotic fluid indices are within normal limits. - The placenta is posterior with a central cord insertion and with no evidence of previa or low-lying placenta. - Visualized anatomy is unremarkable and no abnormality is suspected at this time. - Transabdominally the cervix appeared short. Transvaginal ultrasound was performed to evaluate the cervix; the cervix is normal in length with no dynamic changes noted. A followup ultrasound at 32 weeks is scheduled to check growth. Thank you for allowing us to participate in the care of your patient. Procedure Note Nhi Jolly MD - 10/04/2024 STL BASIC ----- Pat. Name:Re HERNANDEZ Date:10/04/2024 2:50pm Pat. NO: [id number] MD:CM GARCIA MD [facility]:Jud Hanson RDMS :1995Age:28 ----- INDICATION ----- Anatomy Survey no genetics CODING ----- Diagnoses Z3A.20: Weeks of gestation Z36.3: Encounter for screening formalformations Procedures 69242: Ultrasound, uterus, real time withimage documentation, and maternal evaluation, after first trimester (> or = 14 weeks 0 days),transabdominal approach; single or first gestation 02322: Ultrasound, uterus, real time withimage documentation HISTORY ----- OB History 1. Para 0 MATERNAL ASSESSMENT ----- Physical Exam Weight 66 kg. BMI 21.56 kg/m METHOD ----- Transabdominal and transvaginal ultrasound examination ----- Berkowitz . Number of fetuses: 1 DATING ----- Cycle:regular cycle, regular cycle Method of dating:based on stated CAROL GA by prior [id number] w + 6 d CAROL by prior assessment:02/15/2025 Ultrasound examination on:10/04/2024 GA by U/S based upon:AC, BPD, EFW, Femur, HC GA by U/S21 w + 2 d CAROL by U/S:02/12/2025 Assigned:based on stated CAROL, selected on 10/04/2024 Assigned GA20 w + 6 d Assigned CAROL:02/15/2025 BIOMETRY ----- BPD 51.1 mm 21w 3d74% Hadlock OFD 67.2 mm 22w 4d94% Brinda HC 190.1 mm 21w 2d60% Hadlock Cerebellum tr 22.0 mm 21w 3d57% Irvin Nuchal fold 3.2 mm AC 167.2 mm 21w 5d72% Hadlock Femur 34.3 mm 20w 6d39% Hadlock Humerus 32.8 mm 21w 0d54% Brinda HC / AC 1.14 33%Nicolaides Weight Calculation: EFW 415 g 21w 1d 69%Hadlock EFW (lb,oz) 0 lb 15 oz EFW by Hadlock ([id number]) Head / Face / Neck Biometry: Case Planner 8.6 mm CM 3.6 mm 8%Nicolaides Outer IOD 32.1 mm 20w 4d 19%Brinda Extremities / Bony Struc Biometry: FL / BPD 0.67 11%Hadlock FL / HC 0.18 13%Hadlock FL / AC 0.21 10%Hadlock GENERAL EVALUATION ----- Cardiac activity present. FHR 140 bpm. movements: visualized.Presentation: cephalic Placenta: Placental site: posterior Umbilical cord: Cord vessels: 3 vessel cord. Insertion site: placentalinsertion: normal Amniotic fluid: Amount of AF: normal amount. MVP 4.3 cm ANATOMY ----- The following structures appear normal: Head / Neck Cranium. Lateral ventricles. Choroid plexus.Midline falx. Cavum septi pellucidi. Cerebellum. Cisterna magna. Nuchal fold. Face Lips. Profile. Nose. Palate. Orbits. Heart / Thorax 4-chamber view. RVOT view. LVOT view. 3-vesselview. 7-jtdetn-xuszidl view. Situs. Aortic arch view. Ductal arch view. Superior vena cava. Inferiorvena cava. High short axis view. Cardiac rhythm. Diaphragm. Abdomen Abdominal wall. Stomach. Kidneys. Bladder. Spine Cervical spine. Thoracic spine. Lumbar spine.Sacral spine. Extremities / Arms. Right hand. Left hand. Legs. Right foot.Left foot. Skeleton MATERNAL STRUCTURES ----- Cervix Visualized Approach - Transabdominal: Cervical length 37.2mm Right Ovary Visualized Left Ovary Visualized GROWTH OVERVIEW ----- Exam date GA BPD (mm) HC (mm) AC (mm) FL(mm) HL (mm) EFW (g) 10/04/2024 20w 6d 51.1 74% 190.1 60% 167.2 72%34.3 39% 32.8 54% 415 69% COMMENT ----- Patient's name and date of were confirmed by the manager business intelligence priorto the exam. Chelly Louis was present for the transvaginal ultrasound and served as achaperone. IMPRESSION ----- Berkowitz @ 20w 6d referred for anatomical survey. - The biometry is consistent with dates. - Amniotic fluid indices are within normal limits. - The placenta is posterior with a central cord insertion and with noevidence of previa or low-lying placenta. - Visualized anatomy is unremarkable and no abnormality is suspectedat this time. - Transabdominally the cervix appeared short. Transvaginal ultrasound wasperformed to evaluate the cervix; the cervix is normal in length with no dynamic changes noted. A followup ultrasound at 32 weeks is scheduled to check growth. Thank you for allowing us to participate in the care of your patient. us Cm Garcia MD US ORDERABLES Final Result from Last 3 Months Insurance [facility] BLUE PREFERRED WARREN JOSEPH
--- OUTSIDE RECORDS SUMMARY | 2024-11-05 08:12 | XMS_ITS | Clinical Summary ---
Author Organization [facility] [employer] Address [address] [place] [address] Care Team Providers Care Frame Bender Name Role Phone Khurram Dee MD Primary Care Provide r Source Comments [facility],non-owned Affiliates and Associated Physician Practices is amultiple site organization consisting of ambulatory clinics and hospital sitesin [place], [place], [place] and [place]. This disclosure is being madepursuant to the Care Everywhere program and may not contain all information available regarding this patient. Last updated 18.[facility] [employer] Allergies Active Allergy Reactions Criticality Noted Date [...] age to complete this topic Care Teams Frame Bender Relationship Specialty Start Date End Date Khurram Dee MD PCP - General Family Medicine 05/28/17
[2024-11-05 08:41] LABS: Hematocrit 40.6 % (37.0-47.0); Hemoglobin 13.4 g/dL (12.0-15.0); Mean Corpuscular Volume 90.8 fl (80-100); Mean Platelet Volume 10.1 fl (7.4-10.4); Platelet Count Result 212 k/mm3 (150-375); Red Blood Count 4.47 M/mm3 (4.2-5.4); Red Cell Distribution Width 12.2 % (11.5-14.5); White Blood Count 7.7 K/mm3 (4.5-10.0)
[2024-11-05 08:58] LABS: Glucose 1 Hour PP 50gm Dose 99 mg/dL
== END 2024-11-05 07:00 | disposition home or self-care (01) ==
PROVIDERS: PCP Registered Nurse; Visit Provider Nurse Practitioner Obstetrics & Gynecology
DX: Z34.90 Encounter for supervision of normal pregnancy, unspecified, unspecified trimester (principal)
CPT/HCPCS: 36415; 82947; 85027

== ENCOUNTER 2024-11-26 07:37 | Outpatient (RCR) | payer BC, SELFPAY ==
--- OUTSIDE RECORDS SUMMARY | 2024-11-26 07:42 | XMS_ITS | Clinical Summary ---
Author Organization [facility] Address [address] [place] [phone] Phone Care Team Providers Care Reel Slitter Name Role Phone Unavailable Primary Care Provider [...] STL ABSTRACTION Provider, Abstract 10/04/2024 2:44 PM COMMUNITY HEALTH DIRECTOR - 10/04/2024 11:59 PM COMMUNITY HEALTH DIRECTOR Hospital Encounter [facility] and [facility] [address] [place] [phone] Cm Garcia MD Discharge Disposition: Home or Self Care from Last 3 Months Social History Tobacco Use Types Packs/Day Years Used Date Smoking Tobacco: Never Assessed Comments Unknown Sex and Gender Information Value Date Recorded Sex Assigned at Not on file Legal Sex Female 11:12 AM COMMUNITY HEALTH DIRECTOR Gender Identity Not on file Sexual Orientation [...] Info) Description 12/20/2024 7:15 AM CDT Appointment [facility] and [facility] [address] [place] [address] Nhi Jolly MD [address] [facility] [address] [place] [address] Health Maintenance Due Date Last Done Comments DTAP/TDAP/TD VACCINES (1 - Tdap) 2013 HEPATITIS B VACCINES (1 of 3 - 19+ 3-dose series) 2013 HPV/Cotest (21-29) 11/02/2015 INFLUENZA VACCINE (#1) 2024 CERVICAL CANCER SCREENING 2024 HPV/Cotest (30-65) 2024 PAP SMEAR 2024 HPV VACCINES Aged Out No longer eligi ble based on patient's age to complete this topic Procedures Procedure Name Priority Date/Time Associated Diagnosis Comments US OB 14+ WKS SINGLE GEST Routine 10/04/2024 3:50 PM COMMUNITY HEALTH DIRECTOR screening for malformation using ultrasonics from Last 3 Months Results * US OB 14+ WKS SINGLE GEST (10/04/2024 3:50 PM COMMUNITY HEALTH DIRECTOR) Anatomical Region Laterality Modality Pelvis Ultrasound 10/04/2024 2:50 PM COMMUNITY HEALTH DIRECTOR Narrative 10/04/2024 3:50 PM COMMUNITY HEALTH DIRECTOR STL BASIC ----- Pat. Name: JULIA HERNANDEZ Study Date: 10/04/2024 2:50pm Pat. NO: [id number] Referring MD: CM GARCIA MD Site: [place] [employer] Hand: Jud Hanson RDMS : 1995 Age: 28 ----- INDICATION ----- Anatomy Survey no genetics CODING ----- Diagnoses Z3A.20: Weeks of gestation Z36.3: Encounter for screening for malformations Procedures 36617: Ultrasound, uterus, real time with image documentation, and maternal evaluation, after first trimester (> or = 14 weeks 0 days), transabdominal approach; single or first gestation 36291: Ultrasound, uterus, real time with image documentation [...] 0 lb 15 oz EFW by Hadlock ([id number]) Head / Face / Neck Biometry: Quill Cleaner 8.6 mm CM 3.6 mm 8% Nicolaides [...] view. RVOT view. LVOT view. 3-vessel view. 6-bjliln-poyckxb view. Situs. Aortic arch view. Ductal arch [...] and date of were confirmed by the capacitor assembler prior to the exam. Chelly Louis was present for the transvaginal ultrasound and served as a tractor expert. IMPRESSION ----- Berkowitz @ 20w 6d referred [...] Pat. Name:Re HERNANDEZ Date:10/04/2024 2:50pm Pat. NO: [id number] MD:CM [facility]ARCIA [facility] RD[facility] :1995Age:28 ----- INDICATION ----- Anatomy Survey no genetics CODING ----- Diagnoses Z3A.20: Weeks of gestation Z36.3: Encounter for screening formalformations Procedures 78593: Ultrasound, uterus, real time withimage documentation, and maternal evaluation, after first trimester (> or = 14 weeks 0 days),transabdominal approach; single or first gestation 17167: Ultrasound, uterus, real time withimage documentation HISTORY ----- OB History 1. Para 0 MATERNAL ASSESSMENT ----- Physical Exam Weight 66 kg. BMI 21.56 kg/m METHOD ----- Transabdominal and transvaginal ultrasound examination ----- Berkowitz . Number of fetuses: 1 DATING ----- Cycle:regular cycle, regular cycle Method of dating:based on stated CAROL GA by prior [id number] w + 6 d CAROL by prior [...] 0 lb 15 oz EFW by Hadlock ([id number]) Head / Face / Neck Biometry: Quill Cleaner 8.6 mm CM 3.6 mm 8%Nicolaides Outer [...] 4-chamber view. RVOT view. LVOT view. 3-vesselview. 2-luycvp-jfrycwm view. Situs. Aortic arch view. Ductal arch [...] and date of were confirmed by the capacitor assembler priorto the exam. Chelly Missy was present for the transvaginal ultrasound and [...] of your patient. us Cm Garcia MD ORDERABLES Final Result from Last 3 Months Insurance [facility] KATY PREFERRED [facility] Member Subscriber Plan / Payer (Ef fective 2019-Present) Name:Julia Hernandez Relation to Subscriber:Self Name:Julia Hernandez Payer ID:[id number] (NAIC) Group ID:Not on file Type:Katy Wheeler Address: [facility] [id number] [place] [id number]
--- OUTSIDE RECORDS SUMMARY | 2024-11-26 07:42 | XMS_ITS | Clinical Summary ---
Author Organization [facility] [employer] Address [address] [place] [address] Care Team Providers Care Engineered Wood Designer Name Role Phone Khurram Dee MD Primary Care Provide r Source Comments [facility] [employer]non-owned Affiliates and Associated Physician Practices is amultiple site organization consisting of ambulatory clinics and hospital sitesin [place], [place], [place] and [place]. This disclosure is being madepursuant to the Care Everywhere program and may not contain all information available regarding this patient. Last updated 18.[facility] [employer] Allergies Active Allergy Reactions Criticality Noted Date Comments Doxycycline Swelling 05/21/2018 Medications * Be aware that medications may not be up to date on this document. Alwaysverify current medications with the patient. levonorgestrel (MIRENA, 52 MG,) 20 MCG/24HR IUD 1 device by Intrauterine route as directed Active Active Problems No known active problems Social History Tobacco Use Types Packs/Day Years Used Date Smoking Tobacco: Never Smokeless Tobacco: Never Tobacco Cessation:Counseling Given: Yes Alcohol Use Standard Drinks/Week Comments Yes 0 (1 standard drink = 0.6 oz pur e alcohol) Comments No Sex and Gender Information Value Date Recorded Sex Assigned at Not on file Legal Sex Female 12:54 PM CDT Gender Identity Not on file Sexual Orientation [...] 5:38 PM CDT Height 175.3 cm (5' 9) 04/13/2019 5:38 PM CDT Body Mass Index 19.94 04/13/2019 5:38 PM CDT Plan of Treatment Health Maintenance Due Date Last Done Comments PAP SMEAR 1995 HIV SCREENING 2009 HEPATITIS C SCREENING 10/27/2012 DTAP/TDAP/TD VACCINES (1 - Tdap) 2013 HEPATITIS B VACCINE (1 of 3 - 19+ 3-dose series) 2013 COVID-19 VACCINE (1 - 2023-2 5 season) 2024 DEPRESSION SCREENING 08/04/2024 INFLUENZA VACCINE (Season Ended) 2025 ZOSTER VACCINE (1 of 2) 2044 HIB [...] on patient's age to complete this topic Insurance HELEN ANTH Care Teams Engineered Wood Designer Relationship Specialty Start Date End Date Khurram Dee MD PCP - General Family Medicine 05/28/17
[2024-11-27] MEDS: RHO(D) IMMUNE GLOBULIN 300 MCG/2 ML SYRINGE IM (09:55)
== END 2025-02-24 23:59 | disposition home or self-care (01) ==
LOC: ANHLAB 07:37
PROVIDERS: PCP Registered Nurse; Visit Provider Nurse Practitioner Obstetrics & Gynecology
DX: Z34.90 Encounter for supervision of normal pregnancy, unspecified, unspecified trimester (principal)
CPT/HCPCS: 36415; 85461; 86850; 86900; 86901; 90384; 96372; J2790

== ENCOUNTER 2024-12-22 15:30 | Outpatient (RCR) | payer BC, SELFPAY ==
--- NOTE | ~2024-12-22 | US_ITS ---
EXAM EXAMINATION: US OB follow up DATE: 12/22/2024 17:14 CDT INDICATION: Growth and TOD COMPARISON: 06/30/2024 TECHNIQUE: Real-time transabdominal obstetric ultrasound. FINDINGS: 2 para 1 There is a single intrauterine gestation in vertex presentation. The placenta is posterior without placenta previa cardiac activity and movement is noted with a heart rate of 147 beats per minute. Amniotic fluid index measures 15.9 cm, within normal limits. The following biometric data were obtained: Biparietal diameter (BPD): 8.3 cm; head circumference (HC): 31 cm; abdominal circumference (AC): 29 cm; femur length (FL): 6.1 cm. These measurements are concordant. Estimated weight is 2063 g +/- 309 g, which correlates with the 63rd percentile when 02/07/2025 i s used as estimated date of delivery. As single measurements, these parameters are each equal to the following estimated gestational ages: BPD: 33 weeks 3 days. HC: 34 weeks 4 days. AC: 33 weeks 0 days. FL: 31 weeks 6 days. estimated gestational age based solely on measurements from this exam is 33 weeks 2 days +/- 2 weeks 2 days. IMPRESSION: Single intrauterine gestation in vertex presentation with cardiac activity identified. Amniotic fluid index is within normal limits. Estimated weight is within the 63rd percentile, as detailed above. Reviewed, dictated and finalized at location A. IMPRESSION: Single intrauterine gestation in vertex presentation with cardiac activit y identified. Amniotic fluid index is within normal limits. Estimated weight is within the 63rd percentile, as detailed above.
[2024-12-22 17:18] VITALS: BP 126/79; PULSE 75
== END 2025-02-05 09:58 | disposition other institution (70) ==
LOC: ANHOBOP 15:30
PROVIDERS: PCP Registered Nurse; Visit Provider Obstetrics & Gynecology
DX: O36.8330 Maternal care for abnormalities of the fetal heart rate or rhythm, third trimester, not applicable or unspecified (principal); Z3A.32 32 weeks gestation of pregnancy
CPT/HCPCS: 59025; 76816

== ENCOUNTER 2025-01-05 14:16 | Outpatient (CLI) | payer BC, SELFPAY ==
--- OUTSIDE RECORDS SUMMARY | 2025-01-05 14:28 | XMS_ITS | Clinical Summary ---
Author Organization [facility] [employer] Address [address] [place] [address] Care Team Providers Care Blast Furnace Auxiliaries Supervisor Name Role Phone Khurram Dee MD Primary Care Provide r Source Comments [facility],non-owned Affiliates and Associated Physician Practices is amultiple site organization consisting of ambulatory clinics and hospital sitesin [place], [place], [place] and [place]. This disclosure is being madepursuant to the Care Everywhere program and may not contain all information available regarding this patient. Last updated 18.[facility] [employer] Allergies Active Allergy Reactions Criticality Noted Date [...] this topic Insurance HELEN ANTH Care Teams Blast Furnace Auxiliaries Supervisor Relationship Specialty Start Date End Date Khurram Dee MD PCP - General Family Medicine 05/28/17
--- OUTSIDE RECORDS SUMMARY | 2025-01-05 14:28 | XMS_ITS | Clinical Summary ---
Author Organization [facility] Address [address] [place] [phone] Phone Care Team Providers Care Cook Camp Name Role Phone Unavailable Primary Care Provider [...] External Device Data STL ABSTRACTION Provider, Abstract from Last 3 Months Social History Tobacco Use Types Packs/Day Years Used Date Smoking Tobacco: Never Assessed Comments Unknown Sex and Gender Information Value Date Recorded Sex Assigned at Not on file Legal Sex Female 11:12 AM PLATE EMBOSSER Gender Identity Not on file Sexual Orientation [...] Mass Index - - Plan of Treatment Health Maintenance Due Date Last Done Comments DTAP/TDAP/TD VACCINES (1 - Tdap) 2013 HEPATITIS B VACCINES (1 of 3 - 19+ 3-dose series) 2013 HPV/Cotest (21-29) 11/02/2015 INFLUENZA VACCINE (#1) 2024 CERVICAL CANCER SCREENING 2024 HPV/Cotest (30-65) 2024 PAP SMEAR 2024 HPV VACCINES Aged Out No longer eligi ble based on patient's age to complete this topic Insurance BLUE PREFERRED KATY PREFERRED
[2025-01-05 14:49] LABS: Hematocrit 38.4 % (37.0-47.0); Mean Corpuscular HGB Conc 33.9 g/dl (32-36); Mean Corpuscular Hemoglobin 30.2 pg (26-34); Mean Corpuscular Volume 89.3 fl (80-100); Mean Platelet Volume 10.2 fl (7.4-10.4); Platelet Count Result 189 k/mm3 (150-375); Red Cell Distribution Width 12.3 % (11.5-14.5); White Blood Count 8.2 K/mm3 (4.5-10.0)
[2025-01-05 17:21] LABS: HIV 1/2 Ab P24 Ag Result Negative (Negative)
[2025-01-05 18:33] LABS: Syphilis IgG/IgM Antibody Negative (Negative)
== END 2025-01-05 14:17 | disposition home or self-care (01) ==
LOC: ANHLAB 14:18
PROVIDERS: PCP Registered Nurse; Visit Provider Obstetrics & Gynecology
DX: O13.9 Gestational [pregnancy-induced] hypertension without significant proteinuria, unspecified trimester (principal); Z3A.00 Weeks of gestation of pregnancy not specified
CPT/HCPCS: 36415; 85027; 86593; 86703; G0432

== ENCOUNTER 2025-01-05 15:32 | Outpatient (CLI) | payer BC, SELFPAY ==
--- OUTSIDE RECORDS SUMMARY | 2025-01-05 15:38 | XMS_ITS | Clinical Summary ---
Author Organization [facility] [facility] Address [address] [place] [address] Care Team Providers Care Peoplesoft Functional Analyst Name Role Phone Khurram Dee MD Primary Care Provide r Source Comments [facility],non-owned Affiliates and Associated Physician Practices is amultiple site organization consisting of ambulatory clinics and hospital sitesin [place], [place], [place] and [place]. This disclosure is being madepursuant to the Care Everywhere program and may not contain all information available regarding this patient. Last updated 18.[facility] Allergies Active Allergy Reactions Criticality Noted Date [...] this topic Insurance HELEN ANTH Care Teams Peoplesoft Functional Analyst Relationship Specialty Start Date End Date Khurram Dee MD PCP - General Family Medicine 05/28/17
--- OUTSIDE RECORDS SUMMARY | 2025-01-05 15:38 | XMS_ITS | Clinical Summary ---
Author Organization [facility] Address [address] [place] [phone] Phone Care Team Providers Care Paving Stone Installer Name Role Phone Unavailable Primary Care Provider [...] on file Legal Sex Female 11:12 AM PROPERTY INVESTOR Gender Identity Not on file Sexual Orientation [...] to complete this topic Insurance [employer]
[2025-01-05 16:00] VITALS: BP 120/70; PULSE 58
[2025-01-05 16:15] VITALS: BP 117/69; PULSE 61
[2025-01-05 16:30] LABS: Basophils Percent Auto 0.4 % (0.2-1.2); Eosinophils Absolute Auto 0.1 K/mm3 (0-0.3); Eosinophils Percent Auto 1.5 % (0-4.4); Hematocrit 35.8 % (37.0-47.0); Hemoglobin 12.1 g/dL (12.0-15.0); Immature Granulocyte Absolute 0.03 K/mm3 (0.00-0.031); Immature Granulocyte Percent A 0.3 % (0-0.5); Lymphocytes Absolute Auto 1.97 K/mm3 (0.9-3.2); Lymphocytes Percent Auto 20.7 % (18.3-44.2); Mean Corpuscular HGB Conc 33.8 g/dl (32-36); Mean Corpuscular Hemoglobin 30.2 pg (26-34); Mean Corpuscular Volume 89.3 fl (80-100); Mean Platelet Volume 10.4 fl (7.4-10.4); Monocytes Absolute Auto 0.8 K/mm3 (0.1-0.6); Neutrophils Absolute Auto 6.6 K/mm3 (1.3-6.7); Neutrophils Percent Auto 69.1 % (45.5-73.1); Platelet Count Result 191 k/mm3 (150-375); Red Blood Count 4.01 M/mm3 (4.2-5.4); Red Cell Distribution Width 12.2 % (11.5-14.5); White Blood Count 9.5 K/mm3 (4.5-10.0)
[2025-01-05 16:31] LABS: Add Urine Microscopic? NO; Appearance Urine Clear (Clear); Bilirubin Urine Negative (Negative); Blood Urine Negative (Negative); Color Urine Yellow (Yellow); Glucose Urine UA Negative (Negative); Ketones Urine 2+ mg/dL (Negative); Leukocyte Esterase Ur Negative LEU/UL (Negative); Nitrate Urine Negative (Negative); Protein Urine Negative (Negative); Specific Grav Ur 1.013 (1.001-1.035)
[2025-01-05 16:43] LABS: Alanine Aminotransferase 12 U/L (6-35); Albumin Level 3.4 g/dL (3.5-5.1); Alkaline Phosphatase 154 U/L (38-126); Anion Gap 5 mmol/L (4-12); Aspartate Amino Transferase 23 U/L (14-36); Bilirubin,Total 0.7 mg/dL (0.2-1.3); Blood Urea Nitrogen 9 mg/dL (7-17); Calcium 8.6 mg/dL (8.4-10.2); Carbon Dioxide 23 mmol/L (22-30); Chloride 106 mmol/L (98-107); Estimated Glomerular Filt Rate > 60; Glucose 68 mg/dL (65-110); Potassium 3.5 mmol/L (3.4-5.0); Sodium 134 mmol/L (137-145); Total Protein 6.5 g/dL (6.3-8.2); Uric Acid 4.3 mg/dL (2.5-7.5)
[2025-01-05 16:45] LABS: Creatinine Urine 80.3 mg/dL
[2025-01-05 17:00] VITALS: BP 120/70; PULSE 65
[2025-01-05 17:26] LABS: Total Protein Urine Random < 5 mg/dL
[2025-01-05 17:27] LABS: Ur Ttl Prot Creatinine Ratio < 0.06 mg/mg (0-0.20)
== END 2025-01-05 17:00 | disposition home or self-care (01) ==
LOC: ANHOBOP 15:37 → ANHLDR 15:37 → ANHOBPP 15:56
PROVIDERS: PCP Registered Nurse; Visit Provider Obstetrics & Gynecology
DX: O13.9 Gestational [pregnancy-induced] hypertension without significant proteinuria, unspecified trimester (principal); Z3A.00 Weeks of gestation of pregnancy not specified
CPT/HCPCS: 36415; 59025; 80053; 81003; 82570; 84156; 84550; 85025; 85027; 86593; 86703; 99199; G0432

== ENCOUNTER 2025-01-29 07:35 | Observation (INO) | payer BC, SELFPAY ==
--- NOTE | 2025-01-31 13:49 | PM.OBTRLD ---
OB - Triage/Final Diagnosis Visit Information Reason for evaluation: threatened labor Comments/Additional reasons for admission: I have assessed the risk for this patient, Cornelius Gonzáles, and determined that she would benefit from observation care.
== END 2025-01-29 12:31 | disposition home or self-care (01) ==
PROVIDERS: Admitting Provider Obstetrics & Gynecology; PCP Registered Nurse; Visit Provider Obstetrics & Gynecology
DX: O47.1 False labor at or after 37 completed weeks of gestation (principal); Z3A.37 37 weeks gestation of pregnancy
CPT/HCPCS: G0378; G0379

== ENCOUNTER 2025-01-29 21:41 | Inpatient (IN) | payer BC, SELFPAY ==
[2025-01-29] VITALS (24 sets, daily range): BP systolic 103–149; BP diastolic 21–103; PULSE 63–141; TEMP 36.6; O2SAT 99–100
[2025-01-29] MEDS: LACTATED RINGERS 1,000 ML 125 ML IV CONT (22:30)
[2025-01-29] MEDS: ONDANSETRON INJ 4 MG/2 ML VIAL IV PUSH (22:30)
[2025-01-29 22:57] LABS: Basophils Percent Auto 0.3 % (0.2-1.2); Eosinophils Absolute Auto 0.1 K/mm3 (0-0.3); Hematocrit 37.7 % (37.0-47.0); Hemoglobin 13.1 g/dL (12.0-15.0); Immature Granulocyte Absolute 0.04 K/mm3 (0.00-0.031); Immature Granulocyte Percent A 0.3 % (0-0.5); Lymphocytes Absolute Auto 2.66 K/mm3 (0.9-3.2); Lymphocytes Percent Auto 23.1 % (18.3-44.2); Mean Corpuscular HGB Conc 34.7 g/dl (32-36); Mean Corpuscular Hemoglobin 29.6 pg (26-34); Mean Corpuscular Volume 85.3 fl (80-100); Mean Platelet Volume 11.2 fl (7.4-10.4); Monocytes Percent Auto 8.9 % (2.6-8.5); Neutrophils Absolute Auto 7.6 K/mm3 (1.3-6.7); Neutrophils Percent Auto 66.4 % (45.5-73.1); Platelet Count Result 182 k/mm3 (150-375); Red Blood Count 4.42 M/mm3 (4.2-5.4); Red Cell Distribution Width 12.3 % (11.5-14.5); White Blood Count 11.5 K/mm3 (4.5-10.0)
--- NOTE | 2025-01-29 23:07 | P.PNAN_ITS ---
Anes - Eval Pre Procedure Procedure: Labor epidural Date/Time: 01/29/25 23:07 Surgeon: Deon Preop Diagnosis: Abdominal pain with contractions Pre Op Diagnosis: R/O Labor Patient Data Age: 29 Gender: F Height: Weight: Allergies Allergy/AdvReac Type Severity Reaction Status Date / Time doxycycline Allergy Unknown Rash Verified 01/26/25 15:05 Home Medications ?Medication ?Instructions ?Recorded ?Confirmed ?Type prenat.vits,lj,yvp-[id number] 1 tablet PO DAILY 05/03/22 01/21/25 History cholecalciferol (vitamin D3) 50 50 mcg PO DAILY 12/12/22 01/21/25 History mcg (2,000 unit) capsule ondansetron 4 mg disintegrating 4 mg PO Q8H #20 tabs 08/20/24 01/21/25 Rx tablet Laboratory Tests 01/29/25 22:50 WBC 11.5 H K/mm3 (4.5-10.0) RBC 4.42 M/mm3 (4.2-5.4) Hgb 13.1 g/dL (12.0-15.0) Hct 37.7 % (37.0-47.0) MCV 85.3 fl (80-100) MCH 29.6 pg (26-34) MCHC 34.7 g/dl (32-36) RDW 12.3 % (11.5-14.5) Plt Count 182 k/mm3 (150-375) MPV 11.2 H fl (7.4-10.4) Immature Gran % (Auto) 0.3 % (0-0.5) Neut % (Auto) 66.4 % (45.5-73.1) Lymph % (Auto) 23.1 % (18.3-44.2) [place] % (Auto) 8.9 H % (2.6-8.5) Eos % (Auto) 1.0 % (0-4.4) Baso % (Auto) 0.3 % (0.2-1.2) Lymph # (Auto) 2.66 K/mm3 (0.9-3.2) [place] # (Auto) 1.0 H K/mm3 (0.1-0.6) Eos # (Auto) 0.1 K/mm3 (0-0.3) Baso # (Auto) 0.0 K/mm3 (0.0-0.1) Abs Immat Gran (auto) 0.04 H K/mm3 (0.00-0.031) Absolute Neuts (auto) 7.6 H K/mm3 (1.3-6.7) Absolute Nucleated RBC 0.000 K/mm3 (0.0-0.012) Nucleated RBC % 0.0 % (0.0-0.2) Blood Type Pending Antibody Screen Pending : gestational age HCG: positive Patient hx anesthesia problems: none Family hx anesthesia problems: none Results Review: All pre-operative results and documents have been reviewed as part of the pre- operative evaluation. [facility] Past Medical History Medical History Vaginal delivery x1 Hypertension Hx of migraines Surgical History Surgical History History of colposcopy [place] teeth removed Family History Family History Father Hypertension Sibling Hypertension Grandparent Carcinoma of colon Family history of lung cancer Social History Social History Smoking status: Never smoker Second hand tobacco smoke exposure: No Alcohol intake: former Alcohol use details: Not since Substance use: never Do You Feel Safe in your Home?: Yes Lack of Transportation: No Lack of Food: Never True Current Housing: I Have Housing Concerned About Future Housing: No Difficulty Paying Gas/Electric Bills: No Difficulty Paying for Meds: No Currently Unemployed: No Education: Master's Degree or Higher Difficulty w/ Childcare or Family Care: No Living arrangements: with family Spiritual care concerns: No Exam Day of Procedure 01/29/25 23:07 Patient weight: overweight Heart: regular rate and rhythm Lungs: clear to auscultation Airway: Mallampati scale class II
[2025-01-29 23:37] LABS: Syphilis IgG/IgM Antibody Non-Reactive (Nonreactive)
[2025-01-29] MEDS: OXYTOCIN 30 UNITS/NS 500 ML 30 UNITS/500 ML BAG 999 UNITS IV CONT (23:59)
[2025-01-30] VITALS (16 sets, daily range): BP systolic 110–163; BP diastolic 53–110; PULSE 57–90; RESP 16–18; TEMP 36.6–36.7; O2SAT 97–100
--- NOTE | 2025-01-30 00:09 | WPDHPUPDATE1 ---
History and Physical Update Update Date/Time: 01/30/25 00:09 History and Physical has been reviewed, including an updated exam of the patient. There are NO changes in the patient's condition. Risks, benefits, and alternatives have been discussed and questions answered. Patient agrees to proceed with procedure.
--- NOTE | 2025-01-30 00:10 | WPDOBADMIT ---
Obstetrics - Admit Note Admission Note: record reviewed. No pertinent additions to the history and/or any subsequent changes in the physical findings that are not consistent with the expected course of the were found. Additions to the history and/or subsequent changes in the physical findings follow. None.
--- NOTE | 2025-01-30 00:10 | PM.OBPRVD ---
OB - Vaginal Delivery Note Procedure Delivery date: 01/30/25 Delivery augmentation: Rupture of Membranes Delivery monitor: External FHT and External Uterine Route of delivery: Episiotomy description: None Laceration Description: Vaginal Delivery repair: chromic Specimen: No Quantitative Blood Loss (ml): 200 Anesthesia type: Epidural Disposition: Floor Complications: No immediate complications Narrative: Patient prepped draped usual manner for this procedure. Maternal expulsive efforts readily did reveal vertex without difficulty, rest of baby delivered without complication. Cord clamped and cut and placenta delivered spontaneously. Uterus was well contracted. Cervix vagina vulva were inspected with vaginal wall laceration approximately 3cm in length. This was approximated using 2-0 chromic in running interlocking manner with good approximation hemostasis noted. At this point procedure was considered terminated with immediate postoperative condition of mother baby both excellent. Baby Gestational Age by Date: 37 gender: Male presentation: vertex Placenta delivery description: Spontaneous Cord Vessel Description: 3 Vessels
[2025-01-30] MEDS: OXYTOCIN 30 UNITS/NS 500 ML 30 UNITS/500 ML BAG 125 UNITS IV CONT (00:40)
[2025-01-30] MEDS: IBUPROFEN 600 MG TABLET (03:20)
[2025-01-30] MEDS: WITCH HAZEL 40 PADS 1 PAD (03:20)
[2025-01-30] MEDS: BENZOCAINE 20% AER SPR (*SP) 56 GM CAN 1 SPRAY (03:20)
--- NOTE | 2025-01-30 03:23 | OBPPTRN ---
Patient transferred to post room #285 via wheelchair. Support person present. Oriented to unit, room, information board, rooming in, admission packet and security measures. Patient verbalizes understanding.
--- NOTE | 2025-01-30 08:17 | PM.OBPNVD ---
OB - PN: Subj Subjective Date/time seen: 01/30/25 08:17 S: Pain well controlled. Minimal bleeding. Bottle feeding. O: VSS afebrile Abdomen: Positive bowel sounds soft nontender Lab: Noted A: Doing well postop vaginal delivery. Baby to be circumcised, has not been seen by it administrator therefore will defer till tomorrow. P: Routine care OB - PN: Obj Data Labs 01/29/25 22:50 Labs: Laboratory Results - last 24 hr 01/29/25 22:50 WBC 11.5 H RBC 4.42 Hgb 13.1 Hct 37.7 MCV 85.3 MCH 29.6 MCHC 34.7 RDW 12.3 Plt Count 182 MPV 11.2 H Immature Gran % (Auto) 0.3 Neut % (Auto) 66.4 Lymph % (Auto) 23.1 [place] % (Auto) 8.9 H Eos % (Auto) 1.0 Baso % (Auto) 0.3 Lymph # (Auto) 2.66 [place] # (Auto) 1.0 H Eos # (Auto) 0.1 Baso # (Auto) 0.0 Abs Immat Gran (auto) 0.04 H Absolute Neuts (auto) 7.6 H Absolute Nucleated RBC 0.000 Nucleated RBC % 0.0 Syphilis IgG/IgM Ab Non-reactive Blood Type A Negative Antibody Screen Positive Antibody Identification Passive Due to RH Imm Glob Antigen Identification Cancelled KATHYA, IgG Interpret Not Performed KATHYA, Poly Interpret Negative KATHYA, Complement Interp Not Performed OB - PN A/P Time Spent With Patient Time: Total time spent is greater than 50% in coordination of care (as documented) at patient's floor/unit and/or counseling patient:
[2025-01-31 04:30] LABS: Hemoglobin 11.8 g/dL (12.0-15.0)
[2025-01-31 07:20] VITALS: BP 127/85; PULSE 59; RESP 18; TEMP 37.5; O2SAT 98
--- NOTE | 2025-01-31 07:26 | P.PNOB_ITS ---
OB - PN: Subj Subjective Date/time seen: 01/31/25 07:26 Patient comments: no complaints, pain well controlled and tolerating diet [place] baby status: doing well and nursing well OB - PN: Obj Data Labs 01/31/25 04:26 Labs: Laboratory Results - last 24 hr 01/31/25 04:26 Hgb 11.8 L Hct 35.0 L OB - PN A/P Assessment and Plan (1) Vaginal delivery: Code(s): O80 - Encounter for full-term uncomplicated delivery Status: Acute Plan day: 1 Plan: routine care Comments: Patient doing well. Request discharge today. Discharge precautions discussed. Time Spent With Patient Time: Total time spent is greater than 50% in coordination of care (as documented) at patient's floor/unit and/or counseling patient: Exam 2 Psych: Affect: normal affect Other: Abd: fundus firm below umbilicus, nontender Perineum: healing Ext: nontender
--- NOTE | 2025-01-31 07:28 | PM.OBDSVD ---
DS: Admitting Diagnosis Discharge Date 01/31/25 Admitting Diagnosis Active labor DS: Discharge Diagnosis Discharge Diagnosis (1) Vaginal delivery: Code(s): O80 - Encounter for full-term uncomplicated delivery Status: Acute OB - DS: Summary Hospital Course Hospital Course: She was admitted in active labor. She has an uncomplicated vaginal delivery. She did well . Baby did well. She was discharged to home on day 1. OB Procedures : Ultrasound OB Procedures Intrapartum: Spontaneous Vag Delivery OB Procedures: : None Peripartum Data Laceration Description: Vaginal Episiotomy description: None Time Spent with Patient Time attestation: Total time spent providing and/or coordinating discharge services: DS: Data Data Completed and Pending Labs on day of discharge: Labs from last 24 hours 01/31/25 04:26 Hgb 11.8 L Hct 35.0 L Discharge Plan Discharge Attending physician on discharge: Cm Aguero Consulting providers: Dariel Chavarria Discharging Clinician: Cm Aguero Anticipated Discharge Date/Time: 01/31/25 07:29 Patient Disposition: Home Activity: no straining and pelvic rest Diet: regular Patient Instructions: Antibiotic Form Patient Language: Turkish Stand Alone Forms: General Discharge Information Follow-up/Referrals: Cm Aguero MD [Physician] - 4 Weeks (Call for appointment) Discharge Medications: Continued cholecalciferol (vitamin D3) 50 mcg (2,000 unit) capsule 50 mcg PO DAILY No Action ondansetron 4 mg tablet,disintegrating 4 mg PO Q8H Qty: 20 1RF prenat.vits,lj,okg-ltad-tixsc Tablet 1 tablet PO DAILY Date of admission: 01/29/25 21:41 Primary Care Provider: Itzel,Lucila Admitting Provider: Cm Aguero Attending physician on admission: Cm Aguero Condition: Stable
[2025-01-31] MEDS: DOCUSATE SODIUM 100 MG CAPSULE PO (08:12)
--- NOTE | 2025-01-31 10:08 | PC.NURSE ---
Patient viewed the discharge video Mother & Baby Care, The First Two Weeks. Patient was given the opportunity and encouraged to ask questions. Patient verbalized understanding of information shared and has been given the mother/baby guide for home reference.
[2025-02-01 10:12] VITALS: BP 134/78; PULSE 84; RESP 18; TEMP 36.9; O2SAT 100
== END 2025-01-31 11:52 | disposition home or self-care (01) | DRG 807 ==
LOC: ANHLDR 23:01 → ANHOB2 01-30 03:38
PROVIDERS: Admitting Provider Obstetrics & Gynecology; PCP Registered Nurse; Visit Provider Obstetrics & Gynecology
DX: O62.3 Precipitate labor (principal); Z37.0 Single live birth; O70.0 First degree perineal laceration during delivery; Z3A.37 37 weeks gestation of pregnancy
CPT/HCPCS: 36415; 85014; 85018; 85025; 86593; 86850; 86880; 86900; 86901; 86902; A9270; G0378; G0379; J2405; J2590; J2795; J7120